=== PATIENT | male | born 1990 | race American Indian/Alaskan Native ===

== ENCOUNTER 2017-03-28 01:04 | Emergency (ER) | payer SELFPAY | END 2017-03-28 02:00 | disposition left against medical advice (07) | LOC: ED 01:04 | DX: M54.2 Cervicalgia (principal); Z53.21 Procedure and treatment not carried out due to patient leaving prior to being seen by health care provider ==

== ENCOUNTER 2017-04-02 09:43 | Emergency (ER) | payer SELFPAY ==
[2017-04-02 10:22] LABS: Basophils % (Auto) 0.7 % (0.0-1.8); Eosinophils % (Auto) 0.2 % (0.0-4.3); Hematocrit 42.2 % (35.5-45.6); Mean Corpuscular HGB Conc 33 % (32-34); Mean Corpuscular Hemoglobin 28 pg (28-32); Mean Corpuscular Volume 84 fl (84-94); Platelet Count 211 K/mm3 (140-440); Red Blood Count 5.01 M/mm3 (3.65-5.03); Red Cell Distribution Width 13.2 % (13.2-15.2); White Blood Count 13.1 K/mm3 (4.5-11.0)
[2017-04-02 10:29] LABS: Anion Gap 17 mmol/L; Blood Urea Nitrogen 9 mg/dL (9-20); Calcium 9.4 mg/dL (8.4-10.2); Carbon Dioxide 25 mmol/L (22-30); Chloride 103.3 mmol/L (98-107); Glucose 94 mg/dL (75-100); Potassium 4.3 mmol/L (3.6-5.0); Sodium 141 mmol/L (137-145)
--- NOTE | 2017-04-02 12:37 | XRay Report ---
ROUTINE CHEST, TWO VIEWS: HISTORY: chest pain. The trachea, heart, mediastinal contour, lung fernandes and bony thorax are unremarkable. IMPRESSION: Unremarkable chest x-ray.
[2017-04-02] MEDS ORDERED: NORCO 10/325 PO ONE (12:40)
--- NOTE | 2017-04-02 13:48 | Emergency Department Report ---
ED General Adult HPI - General Chief complaint: Chest Pain Stated complaint: ADELA/CHEST PAIN/HEAD/BODY PAIN Time Seen by Provider: 04/02/17 11:14 Source: patient Mode of arrival: Ambulatory Limitations: No Limitations - History of Present Illness Initial comments: Patient is a 26-year-old male with past medical history who presents with myalgias and cough going on for the past day. Patient states that he is having some mild chest pain it is a 4 out of 10 located in the middle of his chest and the pain radiates to his throat. It is a burning type pain. He also states that he feels fatigued and weak. Drinking makes the pain better nothing makes it worse. Patient states he has had some subjective fever no sick contacts. Severity scale (0 -10): 10 - Related Data Allergies Allergy/AdvReac Type Severity Reaction Status Date / Time No Known Allergies Allergy Unverified 04/02/17 09:52 ED Review of Systems ROS: Stated complaint: ADELA/CHEST PAIN/HEAD/BODY PAIN Other details as noted in HPI Constitutional: fever. denies: chills Eyes: denies: eye pain, eye discharge, vision change ENT: denies: ear pain, throat pain Respiratory: cough. denies: shortness of breath, wheezing Cardiovascular: chest pain. denies: palpitations Endocrine: no symptoms reported Gastrointestinal: denies: abdominal pain, nausea, diarrhea Genitourinary: denies: urgency, dysuria Musculoskeletal: myalgia. denies: back pain, joint swelling, arthralgia Skin: denies: rash, lesions Neurological: denies: headache, weakness, paresthesias Psychiatric: denies: anxiety, depression Hematological/Lymphatic: denies: easy bleeding, easy bruising ED Past Medical Hx - Past Medical History Previous Medical History?: No - Surgical History Past Surgical History?: No - Social History Smoking Status: Never Smoker Substance Use Type: None ED Physical Exam - General Limitations: No Limitations General appearance: alert, in no apparent distress - Head Head exam: Present: atraumatic, normocephalic - Eye Eye exam: Present: normal appearance - ENT ENT exam: Present: mucous membranes moist - Neck Neck exam: Present: normal inspection - Respiratory Respiratory exam: Present: normal lung sounds bilaterally. Absent: respiratory distress - Cardiovascular Cardiovascular Exam: Present: regular rate, normal rhythm. Absent: systolic murmur, diastolic murmur, rubs, gallop - GI/Abdominal GI/Abdominal exam: Present: soft, normal bowel sounds - Rectal Rectal exam: Present: deferred - Extremities Exam Extremities exam: Present: normal inspection - Back Exam Back exam: Present: normal inspection - Neurological Exam Neurological exam: Present: alert, oriented X3 - Psychiatric Psychiatric exam: Present: normal affect, normal mood - Skin Skin exam: Present: warm, dry, intact, normal color. Absent: rash ED Course Vital Signs 04/02/17 04/02/17 09:53 12:50 Temperature 99.1 F Pulse Rate 72 Respiratory 18 20 Rate Blood Pressure 124/85 O2 Sat by Pulse 100 Oximetry - Reevaluation(s) Reevaluation #1: 04/02/17 13:44 Lab Results 04/02/17 04/02/17 04/02/17 Range/Units 10:00 10:00 12:38 WBC 13.1 H (4.5-11.0) K/mm3 RBC 5.01 (3.65-5.03) M/mm3 Hgb 14.0 (11.8-15.2) gm/dl Hct 42.2 (35.5-45.6) % MCV 84 (84-94) fl MCH 28 (28-32) pg MCHC 33 (32-34) % RDW 13.2 (13.2-15.2) % Plt Count 211 (140-440) K/mm3 Lymph % (Auto) 7.1 L (13.4-35.0) % [place] % (Auto) 3.5 (0.0-7.3) % Eos % (Auto) 0.2 (0.0-4.3) % Baso % (Auto) 0.7 (0.0-1.8) % Lymph # 0.9 L (1.2-5.4) K/mm3 [place] # 0.5 (0.0-0.8) K/mm3 Eos # 0.0 (0.0-0.4) K/mm3 Baso # 0.1 (0.0-0.1) K/mm3 Seg Neutrophils % 88.5 H (40.0-70.0) % Seg Neutrophils # 11.6 H (1.8-7.7) K/mm3 Sodium 141 (137-145) mmol/L Potassium 4.3 (3.6-5.0) mmol/L Chloride 103.3 (98-107) mmol/L Carbon Dioxide 25 (22-30) mmol/L Anion Gap 17 mmol/L BUN 9 (9-20) mg/dL Creatinine 1.0 (0.8-1.5) mg/dL Estimated GFR > 60 ml/min BUN/Creatinine Ratio 9.00 % Glucose 94 (75-100) mg/dL Calcium 9.4 (8.4-10.2) mg/dL Troponin T < 0.010 < 0.010 (0.00-0.029) ng/mL Reevaluation #2: 04/02/17 13:49 Patient is feeling better after [place] discussed with patient that I will send patient home with Tylenol and ibuprofen. ED Medical Decision Making - Lab Data Result diagrams: 04/02/17 10:00 04/02/17 10:00 - EKG Data -: EKG Interpreted by Me - EKG Data 04/02/17 13:44 EKG shows normal sinus rhythm no ST segment elevations normal axis no T-wave inversions. - Radiology Data Radiology results: report reviewed, image reviewed Chest x-ray shows no acute pulmonary disease. - Medical Decision Making Chief medical diagnosis: Viral pharyngitis Differential medical diagnosis: Myalgia, pneumonia EKG, CBC, CMP, troponin, chest x-ray and oral analgesic medication Due to patient's symptoms and clinical findings his lab work is unrevealing he has a viral syndrome discussed the patient the importance of taking fluids and gave patient return precautions back to the ER he agrees with plan. Critical care attestation.: If time is entered above; I have spent that time in minutes in the direct care of this critically ill patient, excluding procedure time. ED Disposition Clinical Impression: Cough, Myalgia, Viral syndrome Disposition: DC-01 TO HOME OR SELFCARE Is pt being admited?: No Does the pt Need Aspirin: No Condition: Stable Instructions: Viral Syndrome (ED) Referrals: PRIMARY CARE, [Primary Care Provider] - 3-5 Days Time of Disposition: 13:44
[2017-04-02 14:11] VITALS: BP 156/85
== END 2017-04-02 14:10 | disposition home or self-care (01) ==
LOC: ED 09:43
DX: B34.9 Viral infection, unspecified (principal); M79.1 Myalgia; R05 Cough
CPT/HCPCS: 36415; 71020; 80048; 84484; 85025; 93005; 93010